=== PATIENT | male | born 1970 | race Caucasian/White ===

== ENCOUNTER 2017-04-27 13:54 | Emergency (ER) | payer BC ==
[2017-04-27 14:12] VITALS: TEMP 98
[2017-04-27 14:33] VITALS: PULSE 77
[2017-04-27] MEDS ORDERED: Sodium Chloride 0.9% 1,000 ML IV STA (14:47)
--- NOTE | 2017-04-27 14:49 | ED PDOC ---
HPI: Hypertension/Hypotension Time Seen by Provider: 04/27/17 14:47 Chief Complaint (Nursing): High Blood Pressure Chief Complaint (Provider): cp History Per: Patient (46 y/o male here with chest pressure noted last night associated with mild frontal headache. Noted BP elevated systolic > 150 and was concerned. Has been noncompliant on medications x 3 months for BP.) Past Medical History Reviewed: Historical Data, Nursing Documentation, Vital Signs Vital Signs: Last Vital Signs Temp 98 F 04/27/17 14:08 Pulse 77 04/27/17 14:19 Resp 20 04/27/17 14:08 BP 129/84 04/27/17 14:08 Pulse Ox 98 04/27/17 14:08 - Medical History PMH: Bipolar Disorder, HTN, Hypercholesterolemia - Family History Family History: States: No Known Family Hx - Immunization History Hx Tetanus Toxoid Vaccination: No Hx Influenza Vaccination: No Hx Pneumococcal Vaccination: No - Home Medications Home Medications: Ambulatory Orders Medication Instructions Recorded Ranitidine HCl [Zantac] 150 mg PO DAILY PRN #7 tablet 04/27/17 - Allergies Allergies/Adverse Reactions: Allergies Allergy/AdvReac Type Severity Reaction Status Date / Time No Known Allergies Allergy Verified 06/04/15 10:12 Review of Systems ROS Statement: Except As Marked, All Systems Reviewed And Found Negative Cardiovascular: Positive for: Chest Pain Physical Exam - Reviewed Nursing Documentation Reviewed: Yes Vital Signs Reviewed: Yes - Physical Exam Appears: Positive for: Well, Non-toxic, No Acute Distress Head Exam: Positive for: ATRAUMATIC, NORMAL INSPECTION, NORMOCEPHALIC Skin: Positive for: Normal Color, Warm, DRY Eye Exam: Positive for: EOMI, Normal appearance, PERRL ENT: Positive for: Normal ENT Inspection Neck: Positive for: Normal, Painless ROM Cardiovascular/Chest: Positive for: Regular Rate, Rhythm Respiratory: Positive for: CNT, Normal Breath Sounds Gastrointestinal/Abdominal: Positive for: Normal Exam, Bowel Sounds, Soft Back: Positive for: Normal Inspection Extremity: Positive for: Normal ROM Neurologic/Psych: Positive for: Alert, Oriented - Laboratory Results Result Diagrams: 04/27/17 14:37 04/27/17 14:37 - ECG O2 Sat by Pulse Oximetry: 98 - Progress ED Course And Treament: EKG: Nsr 76bpm; no ectopy no acute changes cxr: nad ct head: nad tylenol 975mg x 1 dose ns 1 liter wide open patient noted with improvement of symptoms. Upon re-discussion patient state he has had history of moderate reflux/ heartburn reoccurring. Does not take any medications for symptoms currently. Disposition - Clinical Impression Clinical Impression: Chest pain - Patient ED Disposition Is Patient to be Admitted: No - Disposition Referrals: Eyad Díaz MD [Staff Provider] - Disposition: Routine/Home Disposition Time: 16:42 Condition: FAIR Prescriptions: Ranitidine HCl [Zantac] 150 mg PO DAILY PRN #7 tablet PRN Reason: Pain, Moderate (4-7) Instructions: Chest Pain (ED) Forms: [facility] ([place]an), [facility] ED School/Work Excuse
[2017-04-27 14:51] VITALS: RESP 22
[2017-04-27 15:11] LABS: ALB/GLOB RATIO 1.2 (1.0-2.1); ALBUMIN 4.4 g/dL (3.5-5.0); CALCIUM 9.5 mg/dL (8.4-10.2); GFR AFRICAN-AMERICAN > 60; GFR NON-AFRICAN AMERICAN > 60
[2017-04-27 15:12] LABS: BASO % 0.7 % (0.0-2.0); EOS # 0.3 K/uL (0.0-0.7); EOS % 4.8 % (0.0-4.0); HEMOGLOBIN 13.8 g/dL (12.0-18.0); LYMPH % 35.5 % (20.0-40.0); MEAN CORPUSCULAR HEMOGLOBIN 29.1 pg (27.0-31.0); MEAN CORPUSCULAR HGB CONC 34.2 g/dL (33.0-37.0); MEAN PLATELET VOLUME 7.5 fl (7.2-11.7); MONO # 0.4 K/uL (0.0-0.8); MONO % 6.2 % (0.0-10.0); NEUT % 52.8 % (50.0-75.0); NRBC % 0.2 % (0.0-0.0); RBC 4.75 Mil/uL (4.40-5.90); WHITE BLOOD COUNT 5.7 K/uL (4.8-10.8)
[2017-04-27 15:15] LABS: MEAN CELL VOLUME 85.1 fl (80.0-94.0)
[2017-04-27 15:16] LABS: ALT/SGPT 45 U/L (21-72); AST/SGOT 38 U/L (17-59); BLOOD UREA NITROGEN 15 mg/dl (9-20); MAGNESIUM 1.7 MG/DL (1.6-2.3)
--- NOTE | 2017-04-27 15:22 | RAD ---
HISTORY: routine COMPARISON: 06/04/2015 FINDINGS: LUNGS: No active pulmonary disease. PLEURA: No significant pleural effusion identified, no pneumothorax apparent. CARDIOVASCULAR: Normal. OSSEOUS STRUCTURES: No significant abnormalities. VISUALIZED UPPER ABDOMEN: Normal. OTHER FINDINGS: None. IMPRESSION: No active disease.
--- NOTE | 2017-04-27 15:28 | CT ---
PROCEDURE: CT HEAD WITHOUT CONTRAST. HISTORY: AMS COMPARISON: None available. TECHNIQUE: Axial computed tomography images were obtained through the head/brain without intravenous contrast. Radiation dose: Total exam DLP = 12/18/2011 mGy-cm. This CT exam was performed using one or more of the following dose reduction techniques: Automated exposure control, adjustment of the mA and/or kV according to patient size, and/or use of iterative reconstruction technique. FINDINGS: HEMORRHAGE: No intracranial hemorrhage. BRAIN: No mass effect or edema. No atrophy or chronic microvascular ischemic changes. VENTRICLES: Unremarkable. No hydrocephalus. CALVARIUM: Unremarkable. PARANASAL SINUSES: Unremarkable as visualized. No significant inflammatory changes. MASTOID AIR CELLS: Unremarkable as visualized. No inflammatory changes. OTHER FINDINGS: None. IMPRESSION: Normal CT of the Head. No intracranial mass, hemorrhage or evidence of acute infarct.
[2017-04-27 16:42] VITALS: BP 121/83
[2017-04-27 16:43] VITALS: O2SAT 98
--- NOTE | 2017-04-28 11:11 | CARD ---
APPROVED REPORT EKG Measurement Heart [id number] <Conclusion> Normal sinus rhythm with sinus arrhythmia Normal ECG
== END 2017-04-27 17:14 | disposition home or self-care (01) ==
LOC: H.ER 13:54
DX: I10 Essential (primary) hypertension (principal); E78.00 Pure hypercholesterolemia, unspecified; F31.9 Bipolar disorder, unspecified; Z91.19 Patient's noncompliance with other medical treatment and regimen
CPT/HCPCS: 70450; 71010; 80053; 83735; 84484; 85025; 93005; 96360; 99285; J7040

== ENCOUNTER 2017-09-02 12:32 | Emergency (ER) | payer BC, MEDICAID ==
[2017-09-02 12:32] VITALS: BMI 32.1
[2017-09-02] MEDS ORDERED: Sodium Chloride 0.9% 1,000 ML IV STA (13:38)
[2017-09-02 14:10] LABS: BASO % 0.8 % (0.0-2.0); EOS # 0.2 K/uL (0.0-0.7); EOS % 4.4 % (0.0-4.0); HEMOGLOBIN 13.5 g/dL (12.0-18.0); LYMPH # 1.8 K/uL (1.0-4.3); LYMPH % 33.4 % (20.0-40.0); MEAN CELL VOLUME 85.2 fl (80.0-94.0); MEAN CORPUSCULAR HEMOGLOBIN 28.4 pg (27.0-31.0); MEAN CORPUSCULAR HGB CONC 33.3 g/dL (33.0-37.0); MEAN PLATELET VOLUME 7.3 fl (7.2-11.7); MONO # 0.3 K/uL (0.0-0.8); MONO % 6.5 % (0.0-10.0); NEUT # 2.9 K/uL (1.8-7.0); NEUT % 54.9 % (50.0-75.0); NRBC % 0.1 % (0.0-0.0); RBC 4.75 Mil/uL (4.40-5.90); RED CELL DISTRIBUTION WIDTH 13.7 % (11.5-14.5); WHITE BLOOD COUNT 5.3 K/uL (4.8-10.8)
[2017-09-02 14:19] LABS: ALB/GLOB RATIO 1.2 (1.0-2.1); ALBUMIN 4.2 g/dL (3.5-5.0); ALT/SGPT 44 U/L (21-72); AST/SGOT 25 U/L (17-59); BLOOD UREA NITROGEN 12 mg/dl (9-20); CALCIUM 9.2 mg/dL (8.4-10.2); GFR AFRICAN-AMERICAN > 60; GFR NON-AFRICAN AMERICAN > 60
[2017-09-02 14:20] LABS: PARTIAL THROMBOPLASTIN TIME 32.6 Seconds (25.6-37.1); PROTHROMBIN TIME 11.3 Seconds (9.8-13.1)
--- NOTE | 2017-09-02 14:47 | ED PDOC ---
HPI: Abdomen Time Seen by Provider: 09/02/17 13:07 Chief Complaint (Nursing): GI Problem Chief Complaint (Provider): bloody stool and abdominal pain History Per: Patient History/Exam Limitations: no limitations Onset/Duration Of Symptoms: Days (x1) Current Symptoms Are (Timing): Still Present Location Of Pain/Discomfort: Epigastric Associated Symptoms: Other (bloody stools). denies: Fever, Chills, Vomiting, Diarrhea Additional Complaint(s): Cipriano Feliciano is a 47 year old male, with a history of chronic constipation, who presents to the emergency department complaining of bloody stool onset since yesterday associated with epigastric abdominal discomfort since today. Patient reports last week he had an episode of bloody stools but thought it was hemorrhoids. However, patient states yesterday he had another episode with a lot of blood and today he noticed the blood was dark red which concerned him and prompted ED visit. Patient did not take any aspirin or motrin. He denies any fever, chills, vomiting or diarrhea. No further medical complaints. PMD: Emma Boswell Past Medical History Reviewed: Historical Data, Nursing Documentation, Vital Signs Vital Signs: Last Vital Signs Temp 98.2 F 09/02/17 16:50 Pulse 70 09/02/17 16:50 Resp 18 09/02/17 16:50 BP 130/78 09/02/17 16:50 Pulse Ox 99 09/02/17 16:50 - Medical History PMH: Bipolar Disorder, HTN, Hypercholesterolemia - Surgical History Surgical History: No Surg Hx - Family History Family History: States: Unknown Family Hx - Social History Current smoker - smoking cessation education provided: No Alcohol: None Drugs: Denies - Immunization History Hx Tetanus Toxoid Vaccination: No Hx Influenza Vaccination: No Hx Pneumococcal Vaccination: No - Home Medications Home Medications: Ambulatory Orders Medication Instructions Recorded Atorvastatin [Lipitor] 10 mg PO DIN 09/02/17 - Allergies Allergies/Adverse Reactions: Allergies Allergy/AdvReac Type Severity Reaction Status Date / Time No Known Allergies Allergy Verified 09/02/17 12:52 Review of Systems ROS Statement: Except As Marked, All Systems Reviewed And Found Negative Constitutional: Negative for: Fever, Chills Gastrointestinal: Positive for: Abdominal Pain (epigastric), Hematochezia. Negative for: Vomiting, Diarrhea Physical Exam - Reviewed Nursing Documentation Reviewed: Yes Vital Signs Reviewed: Yes - Physical Exam Appears: Positive for: Non-toxic, No Acute Distress Head Exam: Positive for: ATRAUMATIC, NORMOCEPHALIC Skin: Positive for: Normal Color, Warm, Dry Eye Exam: Positive for: Normal appearance Neck: Positive for: Painless ROM Cardiovascular/Chest: Positive for: Regular Rate, Rhythm. Negative for: Murmur Respiratory: Positive for: Normal Breath Sounds. Negative for: Respiratory Distress Gastrointestinal/Abdominal: Positive for: Tenderness (epigastric) Back: Positive for: Normal Inspection. Negative for: L CVA Tenderness, R CVA Tenderness, Vertebral Tenderness Rectal: Positive for: Other (No bleeding or blood in internal exam. [employer] Manager: EMILY Lam ). Negative for: Black Stool (internal exam), Hemorrhoids ( external exam), Mass (internal exam) Extremity: Positive for: Normal ROM (upper and lower extremity). Negative for: Deformity, Swelling Neurologic/Psych: Positive for: Alert, Oriented. Negative for: Motor/Sensory Deficits - Laboratory Results Result Diagrams: 09/02/17 13:55 09/02/17 13:55 - ECG O2 Sat by Pulse Oximetry: 96 (RA) Pulse Ox Interpretation: Normal Medical Decision Making Medical Decision Making: Initial Impression: bloody stool, rectal bleeding and abdominal pain. Differential includes: diverticulitis, hemorrhoids, colitis. Rule out colon CA, upper GI bleed, peptic ulcer disease Initial Plan: --Type and screen --Abd & Pelvis IV Contrast [CT] --CMP --CBC w/ differential --PTT --PT --Sodium Chloride 1,000 ml IV 1,000 mls/hr --Protonix Inj 40 mg IVP --Reevaluation 16:13 Abdomen/Pelvis CT FINDINGS: LOWER THORAX: Unremarkable. LIVER: Hepatic steatosis. No focal masses. No intrahepatic bile duct dilatation or perihepatic ascites. GALLBLADDER AND BILE DUCTS: Unremarkable. PANCREAS: Unremarkable. No gross lesion or ductal dilatation. SPLEEN: Unremarkable. ADRENALS: Unremarkable. No mass. KIDNEYS AND URETERS: Unremarkable. No hydronephrosis. No solid mass. Incidental finding(s): Simple cyst medial aspect right kidney upper pole region 1.5 cm. VASCULATURE: Unremarkable. No aortic aneurysm. BOWEL: Constipation without fecal impaction or obstruction. APPENDIX: Normal appendix. PERITONEUM: Unremarkable. No free fluid. No free air. LYMPH NODES: Unremarkable. No enlarged lymph nodes. BLADDER: Unremarkable. REPRODUCTIVE: Unremarkable. BONES: No acute fracture. OTHER FINDINGS: None. IMPRESSION: No significant or acute findings to account for/ related to the clinical presentation. Additional benign and/or incidental findings described above. 16:41 -Reviewed labs and CT scan, patient is medically stable for discharge and based on imaging, patient was advised to follow up with outpatient taxation agent for endoscopy. Scribe Attestation: Documented by Valdemar Wahl, acting as a scribe for Yuval Mcdermott MD Provider Scribe Attestation: All medical record entries made by the Scribe were at my direction and personally dictated by me. I have reviewed the chart and agree that the record accurately reflects my personal performance of the history, physical exam, medical decision making, and the department course for this patient. I have also personally directed, reviewed, and agree with the discharge instructions and disposition. Disposition - Clinical Impression Clinical Impression: Bloody stools - Patient ED Disposition Is Patient to be Admitted: No Doctor Will See Patient In The: Office Counseled Patient/Family Regarding: Studies Performed, Diagnosis, Need For Followup - Disposition Referrals: Ovidio Clemens MD, PhD [Staff Provider] - Disposition: Routine/Home Disposition Time: 16:42 Condition: GOOD Additional Instructions: Return for worsening. Follow up with taxation agent within 1 week. Instructions: Bloody Stools, Adult (DC) Forms: [facility] ([place])
[2017-09-02] MEDS ORDERED: Iohexol 300 100 ML IJ ONE (15:07)
[2017-09-02] MEDS ORDERED: Sodium Chloride 0.9% 100 ML ONE (15:07)
--- NOTE | 2017-09-02 16:15 | CT ---
PROCEDURE: CT Abdomen and Pelvis with contrast HISTORY: Epigastric pain rectal bleeding COMPARISON: None. TECHNIQUE: Contrast dose: 95 cc Omnipaque 300 Radiation dose: Total exam DLP = 1076.44 mGy-cm. This CT exam was performed using one or more of the following dose reduction techniques: Automated exposure control, adjustment of the mA and/or kV according to patient size, and/or use of iterative reconstruction technique. FINDINGS: LOWER THORAX: Unremarkable. LIVER: Hepatic steatosis. No focal masses. No intrahepatic bile duct dilatation or perihepatic ascites. GALLBLADDER AND BILE DUCTS: Unremarkable. PANCREAS: Unremarkable. No gross lesion or ductal dilatation. SPLEEN: Unremarkable. ADRENALS: Unremarkable. No mass. KIDNEYS AND URETERS: Unremarkable. No hydronephrosis. No solid mass. Incidental finding(s): Simple cyst medial aspect right kidney upper pole region 1.5 cm. VASCULATURE: Unremarkable. No aortic aneurysm. BOWEL: Constipation without fecal impaction or obstruction. APPENDIX: Normal appendix. PERITONEUM: Unremarkable. No free fluid. No free air. LYMPH NODES: Unremarkable. No enlarged lymph nodes. BLADDER: Unremarkable. REPRODUCTIVE: Unremarkable. BONES: No acute fracture. OTHER FINDINGS: None. IMPRESSION: No significant or acute findings to account for/ related to the clinical presentation. Additional benign and/or incidental findings described above.
[2017-09-02 16:52] VITALS: BP 130/78; PULSE 70; RESP 18; TEMP 98.2
[2017-09-02 17:01] VITALS: O2SAT 96
== END 2017-09-02 16:57 | disposition home or self-care (01) ==
LOC: H.ER 12:32
DX: K92.1 Melena (principal); E78.00 Pure hypercholesterolemia, unspecified; F31.9 Bipolar disorder, unspecified; I10 Essential (primary) hypertension
CPT/HCPCS: 74177; 80053; 85025; 85610; 85730; 86850; 86900; 96374; 99284; C9113; J7040; Q9967